=== PATIENT | male | born 1985 | race Caucasian/White ===

== ENCOUNTER 2022-10-31 16:12 | Emergency (ER) | payer OTHER ==
[~2022-10-31] VITALS: Ht 185.4 cm; Wt 68.0 kg
[2022-10-31 16:12] VITALS: BP 119/74
[2022-10-31 17:10] VITALS: BP 119/74
--- NOTE | 2022-10-31 17:10 | NUR ---
PATIENT BIB [place] [employer]. PATIENT EXAMINED BY DR. BARBOSA. PATIENT MEDICALLY CLEARED AND RELEASED IN CUSTODY IN STABLE CONDITION. ORIGINAL PRE-BOOK FORM GIVEN TO OFFICER DMITRIY.
== END 2022-10-31 17:10 ==
LOC: MED 16:12
DX: S09.90XA Unspecified injury of head, initial encounter (principal); M25.522 Pain in left elbow; F12.90 Cannabis use, unspecified, uncomplicated; F17.210 Nicotine dependence, cigarettes, uncomplicated; Z02.89 Encounter for other administrative examinations; W50.1XXA Accidental kick by another person, initial encounter; Y93.89 Activity, other specified; Y92.89 Other specified places as the place of occurrence of the external cause; Y99.8 Other external cause status
CPT/HCPCS: 99283